=== PATIENT | female | born 2000 | race Caucasian/White ===

== ENCOUNTER 2018-11-12 13:37 | Emergency (ER) | payer OTHER ==
[~2018-11-12] VITALS: Ht 154.9 cm; Wt 58.1 kg
[~2018-11-12 13:37] MED LIST: AMOX500C2 PO; AZIT250T PO
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
--- NOTE | 2018-11-12 14:47 | NUR ---
PPD HERE TO SEE PT
[2018-11-12] MEDS ORDERED: METH-313 PO (14:51)
[2018-11-12] MEDS ORDERED: NAPR-1071 PO (14:51)
[2018-11-12 15:03] VITALS: BP 125/80
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
== END 2018-11-12 15:03 | disposition home or self-care (01) ==
LOC: EDUNIT# 13:37 → ER 13:38
DX: S16.1XXA Strain of muscle, fascia and tendon at neck level, initial encounter (principal); S20.211A Contusion of right front wall of thorax, initial encounter; J45.909 Unspecified asthma, uncomplicated; F98.8 Other specified behavioral and emotional disorders with onset usually occurring in childhood and adolescence; F90.9 Attention-deficit hyperactivity disorder, unspecified type; R40.2142 Coma scale, eyes open, spontaneous, at arrival to emergency department; R40.2252 Coma scale, best verbal response, oriented, at arrival to emergency department; R40.2362 Coma scale, best motor response, obeys commands, at arrival to emergency department; Z90.89 Acquired absence of other organs; V43.52XA Car driver injured in collision with other type car in traffic accident, initial encounter; Y92.410 Unspecified street and highway as the place of occurrence of the external cause
CPT/HCPCS: 70450; 71046; 72125; 93005